=== PATIENT | female | born 1960 | race Asian ===

== ENCOUNTER 2019-08-14 19:57 | Emergency (ER) | payer SELFPAY ==
[~2019-08-14] VITALS: Ht 149.9 cm; Wt 54.0 kg
[2019-08-14] MEDS ORDERED: LOSA50TA65 PO (21:15)
[2019-08-14] MEDS ORDERED: AMLO5TAB66 PO (21:15)
[2019-08-14 21:30] VITALS: BP 143/53
== END 2019-08-14 21:45 | disposition home or self-care (01) ==
LOC: EMS 19:59
DX: I10 Essential (primary) hypertension (principal); Z76.0 Encounter for issue of repeat prescription; Z79.899 Other long term (current) drug therapy